=== PATIENT | female | born 1960 | race Caucasian/White ===

== ENCOUNTER 2016-05-13 07:56 | Outpatient (RCR) | payer OTHER ==
[2016-01-25 22:33] VITALS: BP 126/85
[~2016-05-13 07:56] MED LIST: ALLER-FEX180 MG PO; CLONAZEPAM0.5 MG PO; CODEINE-GUAIFE120 ML PO; HCTZ PO; IMITREX 25MG TA25 MG PO; IPRATROPIUM BROM3 M1 IH; LEVOTHYROXINE PO; LIPITOR20 M1 PO; LISINOPRIL10 MG PO; METHYLDO PO; MIRAPEX0.5 MG PO; NORCO 325 MG-51 TA1 PO; OXYCODONE PO; PROAIR RESPICL90 MCG INH; SEROQUEL XR50 MG PO; SEROQUEL100 MG PO; SERTRALINE PO; SYMBICORT1 AE3 INH; TOPAMAX25 MG PO; TRAZODONE HYDRO50 MG PO; ZESTRIL 5MG5 MG PO; ZOLOFT100 MG PO
== END 2016-08-11 | disposition home or self-care (01) ==
LOC: PT
DX: M25.511 Pain in right shoulder (principal); R20.2 Paresthesia of skin

== ENCOUNTER 2016-09-09 08:33 | Outpatient (RCR) | payer OTHER ==
[2016-01-25 22:33] VITALS: BP 126/85
== END 2016-10-28 11:56 | disposition home or self-care (01) ==
LOC: PT 08:33
DX: M25.511 Pain in right shoulder (principal)

== ENCOUNTER → 2016-09-23 | Outpatient (CLI) | payer OTHER | LOC: RAD 15:31 | DX: K59.00 Constipation, unspecified (principal) ==

== ENCOUNTER → 2017-03-16 | Outpatient (CLI) | payer OTHER ==
[2016-01-25 22:33] VITALS: BP 126/85
== END ==
LOC: MAMMO 13:01
DX: Z12.31 Encounter for screening mammogram for malignant neoplasm of breast (principal)
CPT/HCPCS: G0202

== ENCOUNTER → 2017-04-06 | Outpatient (CLI) | payer OTHER ==
[2016-01-25 22:33] VITALS: BP 126/85
[~2017-04-06] MED LIST changes: +BACLOFEN10 M1 PO; +ESCITALOPRAM20 MG PO; +LIPITOR20 M2 PO; +RT ADVAIR HFA 1112 G IH; +SUMATRIPTAN SUC50 M1 PO; +TRAMADOL 50 MG TAB PO
== END ==
LOC: RAD 08:46
DX: R10.9 Unspecified abdominal pain (principal); E03.9 Hypothyroidism, unspecified; M51.36 Other intervertebral disc degeneration, lumbar region; T14.8XXA Other injury of unspecified body region, initial encounter; F41.8 Other specified anxiety disorders; R73.09 Other abnormal glucose

== ENCOUNTER → 2017-04-08 | Outpatient (CLI) | payer OTHER ==
[~2017-04-08] VITALS: Ht 144.8 cm; Wt 78.6 kg
[2017-04-08 09:30] VITALS: BP 164/82
== END ==
LOC: AMSURD 09:19
DX: E11.9 Type 2 diabetes mellitus without complications (principal); G43.109 Migraine with aura, not intractable, without status migrainosus; R07.89 Other chest pain; E03.8 Other specified hypothyroidism; J43.8 Other emphysema; I10 Essential (primary) hypertension

== ENCOUNTER 2017-06-26 14:22 | Emergency (ER) | payer OTHER ==
[2017-06-26] MEDS ORDERED: ALPRAZOLAM0.25 MG PO (14:42)
[2017-06-26] MEDS ORDERED: MELOXICAM7.5 MG PO (14:42)
[2017-06-26 15:11] LABS: HEMATOCRIT 45.1 % (37.0-47.0); HEMOGLOBIN 14.8 g/dL (12.5-16.0); MEAN CELL VOLUME 85 fl (78-100); MEAN CORPUSCULAR HEMOGLOBIN 28 pg (27-31); MEAN CORPUSCULAR HGB CONC 33 g/dL (33-37); PLATELET COUNT 195 K/mm3 (130-400); RED CELL DISTRIBUTION WIDTH 13.7 % (11.5-14.5); WHITE BLOOD COUNT 10.3 K/mm3 (4.8-10.8)
[2017-06-26 15:25] LABS: LYMPHOCYTE 10 % (20-51); MEAN PLATELET VOLUME 12.3 fl (7.4-10.4); MONOCYTE 5 % (3-10); NEUTROPHILS 82 % (42-75)
[2017-06-26] MEDS ORDERED: AMOXICILLIN 50500 MG PO (15:37)
[2017-06-26 15:56] VITALS: BP 132/80
== END 2017-06-26 15:53 | disposition home or self-care (01) ==
LOC: ED 14:22
PROVIDERS: Family Medicine
DX: J06.9 Acute upper respiratory infection, unspecified (principal); H66.92 Otitis media, unspecified, left ear; J44.9 Chronic obstructive pulmonary disease, unspecified; Z87.891 Personal history of nicotine dependence; E03.9 Hypothyroidism, unspecified
CPT/HCPCS: J1885

== ENCOUNTER → 2017-07-11 | Outpatient (CLI) | payer OTHER ==
[2017-06-26 15:56] VITALS: BP 132/80
[~2017-07-11] MED LIST changes: +ALPRAZOLAM0.25 MG PO; +AMOXICILLIN 50500 MG PO; +MELOXICAM7.5 MG PO
[2017-07-11 09:03] LABS: ALBUMIN 4.2 g/dL (3.5-5.0); BUN/CREATININE RATIO 32.6 (6.0-26.0); POTASSIUM 3.4 mmol/L (3.6-5.0); TOTAL BILIRUBIN 0.5 mg/dL (0.2-1.3); TOTAL PROTEIN 7.7 g/dL (6.3-8.2)
== END ==
LOC: LAB 08:06
PROVIDERS: Family Medicine
DX: E78.00 Pure hypercholesterolemia, unspecified (principal); E11.9 Type 2 diabetes mellitus without complications; E03.9 Hypothyroidism, unspecified

== ENCOUNTER → 2017-08-31 | Outpatient (CLI) | payer OTHER | LOC: RAD 07:03 | DX: M48.061 Spinal stenosis, lumbar region without neurogenic claudication (principal); M51.24 Other intervertebral disc displacement, thoracic region ==

== ENCOUNTER → 2017-11-07 | Outpatient (CLI) | payer OTHER ==
[2017-11-07 09:54] LABS: BUN/CREATININE RATIO 23.9 (6.0-26.0); CALCIUM 9.3 mg/dL (8.4-10.2); POTASSIUM 3.6 mmol/L (3.6-5.0)
== END ==
LOC: LAB 09:25
PROVIDERS: Family Medicine
DX: M79.671 Pain in right foot (principal); M25.471 Effusion, right ankle; M51.36 Other intervertebral disc degeneration, lumbar region; E11.9 Type 2 diabetes mellitus without complications

== ENCOUNTER 2017-12-01 14:00 | Outpatient (RCR) | payer OTHER | END 2017-12-27 | disposition home or self-care (01) | LOC: PT | DX: G89.29 Other chronic pain (principal); M54.16 Radiculopathy, lumbar region; M53.3 Sacrococcygeal disorders, not elsewhere classified; M47.817 Spondylosis without myelopathy or radiculopathy, lumbosacral region ==

== ENCOUNTER → 2017-12-29 | Outpatient (CLI) | payer OTHER ==
[2017-12-29 11:11] LABS: URINE APPEARANCE CLEAR; URINE BILIRUBIN NEGATIVE (NEGATIVE); URINE BLOOD NEGATIVE (NEGATIVE); URINE COLOR YELLOW; URINE GLUCOSE NEGATIVE (NEGATIVE); URINE KETONE NEGATIVE (NEGATIVE); URINE LEUKOCYTE ESTERASE NEGATIVE (NEGATIVE); URINE MUCUS PRESENT (NOT PRESENT); URINE NITRATE NEGATIVE (NEGATIVE); URINE PROTEIN(semi-quant) NEGATIVE (NEGATIVE); URINE UROBILINOGEN NORMAL (NORMAL)
== END ==
LOC: LAB 09:44
PROVIDERS: Family Medicine
DX: R30.0 Dysuria (principal)

== ENCOUNTER → 2018-01-16 | Outpatient (CLI) | payer OTHER | LOC: RAD 09:45 | DX: R05 Cough (principal); R06.02 Shortness of breath; Z87.891 Personal history of nicotine dependence ==

== ENCOUNTER → 2018-02-27 | Outpatient (CLI) | payer OTHER ==
[~2018-02-27] VITALS: Ht 144.8 cm; Wt 79.5 kg
[2018-02-27 11:23] VITALS: BP 157/81
[2018-02-27 13:30] VITALS: BP 136/72
[2018-02-27 15:05] VITALS: BP 149/75
== END ==
LOC: AMSURD 10:56
DX: G43.909 Migraine, unspecified, not intractable, without status migrainosus (principal); M54.2 Cervicalgia; Z98.890 Other specified postprocedural states
CPT/HCPCS: J1630; J1885; J7030

== ENCOUNTER → 2018-03-20 | Outpatient (CLI) | payer OTHER ==
[2018-02-27 15:05] VITALS: BP 149/75
[2018-03-20 13:36] LABS: HEMATOCRIT 45.5 % (37.0-47.0); HEMOGLOBIN 15.2 g/dL (12.5-16.0); RED BLOOD COUNT 5.37 M/mm3 (4.10-5.30); RED CELL DISTRIBUTION WIDTH 13.7 % (11.5-14.5); WHITE BLOOD COUNT 10.3 K/mm3 (4.8-10.8)
[2018-03-20 13:39] LABS: MEAN PLATELET VOLUME 12.3 fl (7.4-10.4)
[2018-03-20 14:03] LABS: ALBUMIN 4.3 g/dL (3.5-5.0); CALCIUM 9.7 mg/dL (8.4-10.2); POTASSIUM 3.8 mmol/L (3.6-5.0); TOTAL BILIRUBIN 0.4 mg/dL (0.2-1.3); TOTAL PROTEIN 6.9 g/dL (6.3-8.2)
== END ==
LOC: LAB 13:18
PROVIDERS: Family Medicine
DX: R53.83 Other fatigue (principal); G43.909 Migraine, unspecified, not intractable, without status migrainosus

== ENCOUNTER → 2018-03-22 | Outpatient (CLI) | payer OTHER ==
[2018-02-27 15:05] VITALS: BP 149/75
== END ==
LOC: MAMMO 13:25
DX: Z12.31 Encounter for screening mammogram for malignant neoplasm of breast (principal)

== ENCOUNTER → 2018-06-02 | Outpatient (CLI) | payer OTHER ==
[~2018-06-02] VITALS: Ht 144.8 cm; Wt 72.7 kg
[~2018-06-02] MED LIST changes: +ACETAMINOPHEN-H1 TA2 PO; +ALBUTEROL SULFAT3 M3 IH; +ALPRAZOLAM0.5 MG PO; +DOXYCYCLINE MO100 M3 PO; +LEVOTHYROXIN0.075 MG PO; +PREDNISONE20 M1 PO
[2018-06-02 10:49] VITALS: BP 121/69
[2018-06-02 11:52] VITALS: BP 110/81
== END ==
LOC: AMSURD 10:34
DX: J44.1 Chronic obstructive pulmonary disease with (acute) exacerbation (principal); R05 Cough
CPT/HCPCS: J2930

== ENCOUNTER 2018-06-04 10:55 | Emergency (ER) | payer OTHER ==
[~2018-06-04 10:55] MED LIST changes: -ACETAMINOPHEN-H1 TA2 PO; -ALPRAZOLAM0.5 MG PO; -DOXYCYCLINE MO100 M3 PO; -LEVOTHYROXIN0.075 MG PO; -PREDNISONE20 M1 PO
[2018-06-04] MEDS ORDERED: LEVOTHYROXIN0.075 MG PO (11:23)
[2018-06-04] MEDS ORDERED: DOXYCYCLINE MO100 M3 PO (11:23)
[2018-06-04] MEDS ORDERED: PREDNISONE20 M1 PO (11:23)
[2018-06-04] MEDS ORDERED: ALPRAZOLAM0.5 MG PO (11:23)
[2018-06-04] MEDS ORDERED: ACETAMINOPHEN-H1 TA2 PO (11:23)
[2018-06-04 12:04] LABS: EOS % 0.3 % (1.0-5.0); HEMATOCRIT 43.4 % (37.0-47.0); HEMOGLOBIN 13.9 g/dL (12.5-16.0); LYMPH# 2.7 (1.50-4.00); MEAN CELL VOLUME 89 fl (78-100); MEAN CORPUSCULAR HEMOGLOBIN 28 pg (27-31); MEAN CORPUSCULAR HGB CONC 32 g/dL (33-37); MONO # 0.7 (0.20-0.80); PLATELET COUNT 207 K/mm3 (130-400); RED CELL DISTRIBUTION WIDTH 14.5 % (11.5-14.5); WHITE BLOOD COUNT 15.3 K/mm3 (4.8-10.8)
[2018-06-04 12:17] LABS: ALBUMIN 4.3 g/dL (3.5-5.0); CALCIUM 9.5 mg/dL (8.4-10.2); NEU # 11.7 (1.40-6.50); POTASSIUM 3.8 mmol/L (3.6-5.0); TOTAL BILIRUBIN 0.4 mg/dL (0.2-1.3); TOTAL PROTEIN 7.2 g/dL (6.3-8.2)
[2018-06-04 12:50] LABS: URINE APPEARANCE HAZY; URINE BILIRUBIN NEGATIVE (NEGATIVE); URINE BLOOD NEGATIVE (NEGATIVE); URINE COLOR YELLOW; URINE GLUCOSE NEGATIVE (NEGATIVE); URINE KETONE NEGATIVE (NEGATIVE); URINE LEUKOCYTE ESTERASE TRACE (NEGATIVE); URINE NITRATE NEGATIVE (NEGATIVE); URINE PROTEIN(semi-quant) TRACE mg/dL (NEGATIVE); URINE UROBILINOGEN NORMAL (NORMAL)
[2018-06-04 12:51] LABS: URINE MUCUS PRESENT (NOT PRESENT)
[2018-06-04] MEDS ORDERED: NORCO 325 MG-51 TA1 PO (14:25)
[2018-06-04 14:35] VITALS: BP 131/85
== END 2018-06-04 14:34 | disposition home or self-care (01) ==
LOC: ED 10:55
PROVIDERS: Family Medicine
DX: J44.1 Chronic obstructive pulmonary disease with (acute) exacerbation (principal); F17.200 Nicotine dependence, unspecified, uncomplicated; Z79.899 Other long term (current) drug therapy

== ENCOUNTER → 2018-06-22 | Outpatient (CLI) | payer OTHER ==
[2018-06-04 14:35] VITALS: BP 131/85
[~2018-06-22] MED LIST changes: +ACETAMINOPHEN-H1 TA2 PO; +ALPRAZOLAM0.5 MG PO; +DOXYCYCLINE MO100 M3 PO; +LEVOTHYROXIN0.075 MG PO; +PREDNISONE20 M1 PO
[2018-06-22 12:08] LABS: ALBUMIN 4.5 g/dL (3.5-5.0); CALCIUM 9.5 mg/dL (8.4-10.2); TOTAL BILIRUBIN 0.5 mg/dL (0.2-1.3); TOTAL PROTEIN 7.5 g/dL (6.3-8.2)
== END ==
LOC: LAB 11:15
PROVIDERS: Family Medicine
DX: E11.9 Type 2 diabetes mellitus without complications (principal); J44.9 Chronic obstructive pulmonary disease, unspecified; R63.0 Anorexia

== ENCOUNTER → 2018-10-20 | Outpatient (CLI) | payer SELFPAY ==
[~2018-10-20] VITALS: Ht 144.8 cm; Wt 72.7 kg
[2018-10-20 16:30] VITALS: BP 140/88
== END ==
LOC: AMSURD 15:49
DX: R07.89 Other chest pain (principal)

== ENCOUNTER → 2018-11-20 | Outpatient (CLI) | payer BC ==
[2018-10-20 16:30] VITALS: BP 140/88
== END ==
LOC: RAD 15:40
DX: S46.812A Strain of other muscles, fascia and tendons at shoulder and upper arm level, left arm, initial encounter (principal); M75.52 Bursitis of left shoulder; M89.9 Disorder of bone, unspecified

== ENCOUNTER → 2019-01-25 | Outpatient (CLI) | payer BC ==
[2018-10-20 16:30] VITALS: BP 140/88
[2019-01-25 10:07] LABS: POTASSIUM 4.3 mmol/L (3.5-5.1)
[2019-01-25 10:08] LABS: CALCIUM 9.6 mg/dL (8.3-10.5)
== END ==
LOC: LAB 09:36
PROVIDERS: Family Medicine
DX: M75.52 Bursitis of left shoulder (principal); I10 Essential (primary) hypertension; F41.8 Other specified anxiety disorders; E03.8 Other specified hypothyroidism; G25.81 Restless legs syndrome; G43.109 Migraine with aura, not intractable, without status migrainosus